=== PATIENT | male | born 1970 | race African-American/Black ===

== ENCOUNTER 2017-08-01 16:46 | Emergency (ER) | payer OTHER ==
--- NOTE | 2017-08-01 17:36 | EDM.PDOC ---
<Otilio Hughes O - Last Filed: 08/01/17 17:36> ED HPI GENERAL MEDICAL PROBLEM - General Chief Complaint: Cardiovascular Problem Stated Complaint: HIGH BLOOD PRESSURE Time Seen by Provider: 08/01/17 17:00 - Related Data Allergies Allergy/AdvReac Type Severity Reaction Status Date / Time No Known Allergies Allergy Verified 08/01/17 16:53 Home Meds: Home Meds Lisinopril 20 mg PO DAILY #30 tablet 08/01/17 [Rx] amLODIPine [Norvasc] 10 mg PO DAILY #30 tablet 08/01/17 [Rx] Past Medical History - Past Health History Medical/Surgical History: Denies Medical/Surgical History Social & Family History - Tobacco Use Smoking Status *Q: Never Smoker - Recreational Drug Use Recreational Drug Use: No Course - Vital Signs Last Recorded V/S: Last Vital Signs Temp 36.1 C 08/01/17 16:53 Pulse 54 L 08/01/17 16:53 Resp BP 208/101 H 08/01/17 18:05 Pulse Ox 100 08/01/17 16:53 - Orders/Labs/Meds Orders: Active Orders 24 hr Category Date Time Status EKG Documentation Completion [RC] ASDIRECTED Care 08/01/17 17:10 Active Chest 1V Frontal [CR] Stat Exams 08/01/17 18:03 Taken EKG 12 Lead [EK] Stat Ther 08/01/17 17:10 Ordered Labs: Laboratory Tests 08/01/17 08/01/17 08/01/17 Range/Units 17:50 17:54 17:54 WBC 5.17 (4.23-9.07) K/mm3 RBC 4.74 (4.63-6.08) M/mm3 Hgb 14.5 (13.7-17.5) gm/L Hct 40.3 (40.1-51.0) % MCV 85.0 (79.0-92.2) fl MCH 30.6 (25.7-32.2) pg MCHC 36.0 H (32.2-35.5) g/dl RDW Std Deviation 41.3 (35.1-43.9) fL Plt Count 144 L (163-337) K/mm3 MPV 10.4 (9.4-12.3) fl Neutrophils % (Manual) 46 (40-60) % Band Neutrophils % 0 (0-10) % Lymphocytes % (Manual) 45 H (20-40) % Atypical Lymphs % 0 % Monocytes % (Manual) 6 (2-10) % Eosinophils % (Manual) 3 (0.8-7.0) % Basophils % (Manual) 0 L (0.2-1.2) Platelet Estimate Adequate Plt Morphology Comment Normal RBC Morph Comment Normal Sodium 141 (136-145) mEq/L Potassium 4.1 (3.5-5.1) mEq/L Chloride 106 (98-107) mEq/L Carbon Dioxide 30 (21-32) mEq/L Anion Gap 9.1 (5-15) BUN 20 H (7-18) mg/dL Creatinine 1.1 (0.7-1.3) mg/dL Est Cr Clr Drug Dosing 93.81 mL/min Estimated GFR (MDRD) > 60 (>60) mL/min BUN/Creatinine Ratio 18.2 H (14-18) Glucose 92 (74-106) mg/dL Uric Acid 4.6 (3.5-7.2) mg/dL Calcium 9.4 (8.5-10.1) mg/dL Total Bilirubin 0.5 (0.2-1.0) mg/dL AST 76 H (15-37) U/L ALT 75 H (16-63) U/L Alkaline Phosphatase 94 (46-116) U/L Troponin I (0.00-0.056) ng/mL Total Protein 7.3 (6.4-8.2) g/dl Albumin 3.1 L (3.4-5.0) g/dl Globulin 4.2 gm/dL Albumin/Globulin Ratio 0.7 L (1-2) Urine Color Light yellow (Yellow) Urine Appearance Clear (Clear) Urine pH 6.0 (5.0-8.0) Ur Specific [place] 1.025 (1.005-1.030) Urine Protein 1+ H (Negative) Urine Glucose (UA) Negative (Negative) Urine Ketones Negative (Negative) Urine Occult Blood Trace-lysed H (Negative) Urine Nitrite Negative (Negative) Urine Bilirubin Negative (Negative) Urine Urobilinogen 2.0 H (0.2-1.0) Ur Leukocyte Esterase Negative (Negative) Urine RBC 0-5 (0-5) /hpf Urine WBC 0-5 (0-5) /hpf Ur Epithelial Cells 0-5 (0-5) /hpf Urine Bacteria Few (FEW) /hpf Urine Mucus Few (FEW) /hpf 08/01/17 Range/Units 17:54 WBC (4.23-9.07) K/mm3 RBC (4.63-6.08) M/mm3 Hgb (13.7-17.5) gm/L Hct (40.1-51.0) % MCV (79.0-92.2) fl MCH (25.7-32.2) pg MCHC (32.2-35.5) g/dl RDW Std Deviation (35.1-43.9) fL Plt Count (163-337) K/mm3 MPV (9.4-12.3) fl Neutrophils % (Manual) (40-60) % Band Neutrophils % (0-10) % Lymphocytes % (Manual) (20-40) % Atypical Lymphs % % Monocytes % (Manual) (2-10) % Eosinophils % (Manual) (0.8-7.0) % Basophils % (Manual) (0.2-1.2) Platelet Estimate Plt Morphology Comment RBC Morph Comment Sodium (136-145) mEq/L Potassium (3.5-5.1) mEq/L Chloride (98-107) mEq/L Carbon Dioxide (21-32) mEq/L Anion Gap (5-15) BUN (7-18) mg/dL Creatinine (0.7-1.3) mg/dL Est Cr Clr Drug Dosing mL/min Estimated GFR (MDRD) (>60) mL/min BUN/Creatinine Ratio (14-18) Glucose (74-106) mg/dL Uric Acid (3.5-7.2) mg/dL Calcium (8.5-10.1) mg/dL Total Bilirubin (0.2-1.0) mg/dL AST (15-37) U/L ALT (16-63) U/L Alkaline Phosphatase (46-116) U/L Troponin I < 0.017 (0.00-0.056) ng/mL Total Protein (6.4-8.2) g/dl Albumin (3.4-5.0) g/dl Globulin gm/dL Albumin/Globulin Ratio (1-2) Urine Color (Yellow) Urine Appearance (Clear) Urine pH (5.0-8.0) Ur Specific [place] (1.005-1.030) Urine Protein (Negative) Urine Glucose (UA) (Negative) Urine Ketones (Negative) Urine Occult Blood (Negative) Urine Nitrite (Negative) Urine Bilirubin (Negative) Urine Urobilinogen (0.2-1.0) Ur Leukocyte Esterase (Negative) Urine RBC (0-5) /hpf Urine WBC (0-5) /hpf Ur Epithelial Cells (0-5) /hpf Urine Bacteria (FEW) /hpf Urine Mucus (FEW) /hpf Meds: Medications Discontinued Medications Generic Name Dose Route Start Last Admin Trade Name Etienneq PRN Reason Stop Dose Admin Amlodipine Besylate 10 mg 08/01/17 17:58 08/01/17 18:05 Norvasc PO 08/01/17 17:59 10 mg ONETIME ONE Administration Departure - Departure Disposition: Home, Self-Care 01 Clinical Impression: Essential (primary) hypertension Prescriptions: amLODIPine [Norvasc] 10 mg PO DAILY #30 tablet Lisinopril 20 mg PO DAILY #30 tablet Referrals: PCP,None [Primary Care Provider] - Forms: ED Department Discharge Additional Instructions: Evaluation in the emergency room today in regards to identified elevated blood pressure during DOT physical examination at [facility] today. Blood pressure was indeed elevated and tests suggest that it is been elevated for at least 2 years and probably longer. There is no significant and organ damage such as eyes kidneys heart etc. Blood pressure at the time of discharge was 190 /100. All the lab tests done were essentially within normal limits. Treatment is therefore blood pressure medications amlodipine 10 mg once daily with lisinopril 20 mg once daily in both tablets could be taken at the same time of the day. He will have to take blood pressure medications the rest of your life. This is per to prevent stroke and/or heart attack/heart disease. Follow-up with your care provider at [facility] in one week's time as planned so that blood pressure can be reviewed in a will need to be reviewed fairly often until it comes under good control with medications. You may well need another medication to help control the blood pressure to near normal level. - My Orders Last 24 Hours: My Active Orders 08/01/17 17:10 EKG Documentation Completion [RC] ASDIRECTED EKG 12 Lead [EK] Stat 08/01/17 18:03 Chest 1V Frontal [CR] Stat - Assessment/Plan Last 24 Hours: My Active Orders 08/01/17 17:10 EKG Documentation Completion [RC] ASDIRECTED EKG 12 Lead [EK] Stat 08/01/17 18:03 Chest 1V Frontal [CR] Stat <Rambo Modi - Last Filed: 08/01/17 19:03> ED HPI GENERAL MEDICAL PROBLEM - General Source of Information: Reports: Patient History Limitations: Reports: No Limitations - History of Present Illness INITIAL COMMENTS - FREE TEXT/NARRATIVE: 47-year-old male who originated in the [place] presents to the ED for evaluation of markedly elevated blood pressure identified at DOT physical exam today. Patient was told 2 years ago at his last DOT physical that his blood pressure needed to be kept an eye on and he has not seen a physician since. Blood pressure at the clinic was greater than 230 on the systolic side and greater than 220 on the diastolic side. On arrival here his initial blood pressure was 240 10/27/11. Subsequent currently it has come down to 208/101. Heart rate remains in the 50s. I.e. sinus bradycardia. He is totally asymptomatic he has no headache no vertigo no off balance feeling no blurred vision no backache and no polyuria. To his knowledge never had any kidney diseases as a child. He's not sure about his family history. He has been in the [place] for about 23 years. Onset: Unknown/Unsure (Suspect blood pressure elevation for many years that is gone untreated.) Duration: Chronic Location: Reports: Generalized Quality: Reports: Other (No symptoms.) Severity: Moderate (Blood pressure is found a markedly elevated.) Improves with: Reports: None Worsens with: Reports: None Context: Reports: Other (Identified to be hypertensive on DOT physical exam done today.). Denies: Activity, Exercise, Lifting, Sick Contact, Trauma Associated Symptoms: Reports: No Other Symptoms Treatments EVENTS ASSOCIATE: Reports: Other (see below) (None.) Social & Family History - Living Situation & Occupation Living situation: Reports: Single Occupation: Employed ED ROS GENERAL - Review of Systems Review Of Systems: See Below Constitutional: Reports: No Symptoms HEENT: Reports: No Symptoms Respiratory: Reports: No Symptoms Cardiovascular: Reports: No Symptoms Endocrine: Reports: No Symptoms GI/Abdominal: Reports: No Symptoms : Reports: No Symptoms Musculoskeletal: Reports: No Symptoms Skin: Reports: No Symptoms Neurological: Reports: No Symptoms Psychiatric: Reports: No Symptoms Hematologic/Lymphatic: Reports: No Symptoms Immunologic: Reports: No Symptoms ED EXAM, GENERAL - Physical Exam Exam: See Below Exam Limited By: No Limitations General Appearance: Alert, WD/WN, No Apparent Distress Eye Exam: Bilateral Eye: Normal Fundi, PERRL Neck: Normal Inspection, Supple, Non-Tender, Full Range of Motion. No: Carotid Bruit, Lymphadenopathy (L), Lymphadenopathy (R) Respiratory/Chest: No Respiratory Distress, Lungs Clear, Normal Breath Sounds, No Accessory Muscle Use Cardiovascular: Normal Peripheral Pulses, Regular Rate, Rhythm, No Edema, No Gallop, No Murmur, No Rub Peripheral Pulses: 3+: Posterior Tibial (L), Posterior Tibial (R), Dorsalis Pedis (L), Dorsalis Pedis (R) GI/Abdominal: Normal Bowel Sounds, Soft, Non-Tender, No Organomegaly, No Distention, No Abnormal Bruit, No Mass, Pelvis Stable, Other (No surgical scars. ) Back Exam: Normal Inspection, Full Range of Motion. No: CVA Tenderness (L), CVA Tenderness (R) Extremities: Normal Inspection, Normal Range of Motion, Non-Tender, No Pedal Edema Neurological: Alert, Oriented, CN II-XII Intact, Normal Cognition, Normal Gait, Normal Reflexes Psychiatric: Normal Affect, Normal Mood Skin Exam: Warm, Dry, Intact, Normal Color, No Rash EKG INTERPRETATION EKG Date: 08/01/17 Time: 17:20 Rhythm: Other (Sinus bradycardia) Rate (Beats/Min): 50 [place]: LAD-Left [place] Deviation (Mild left axis deviation of -18) P-Wave: Present QRS: Other (Left ventricular hypertrophy pattern with strain.) ST-T: Other (There is an early repolarization pattern in V2 V3 and V4.) QT: Prolonged (Moderately prolonged) Course - Orders/Labs/Meds Labs: Laboratory Tests 08/01/17 08/01/17 08/01/17 Range/Units 17:50 17:54 17:54 WBC 5.17 (4.23-9.07) K/mm3 RBC 4.74 (4.63-6.08) M/mm3 Hgb 14.5 (13.7-17.5) gm/L Hct 40.3 (40.1-51.0) % MCV 85.0 (79.0-92.2) fl MCH 30.6 (25.7-32.2) pg MCHC 36.0 H (32.2-35.5) g/dl RDW Std Deviation 41.3 (35.1-43.9) fL Plt Count 144 L (163-337) K/mm3 MPV 10.4 (9.4-12.3) fl Neutrophils % (Manual) 46 (40-60) % Band Neutrophils % 0 (0-10) % Lymphocytes % (Manual) 45 H (20-40) % Atypical Lymphs % 0 % Monocytes % (Manual) 6 (2-10) % Eosinophils % (Manual) 3 (0.8-7.0) % Basophils % (Manual) 0 L (0.2-1.2) Platelet Estimate Adequate Plt Morphology Comment Normal RBC Morph Comment Normal Sodium 141 (136-145) mEq/L Potassium 4.1 (3.5-5.1) mEq/L Chloride 106 (98-107) mEq/L Carbon Dioxide 30 (21-32) mEq/L Anion Gap 9.1 (5-15) BUN 20 H (7-18) mg/dL Creatinine 1.1 (0.7-1.3) mg/dL Est Cr Clr Drug Dosing 93.81 mL/min Estimated GFR (MDRD) > 60 (>60) mL/min BUN/Creatinine Ratio 18.2 H (14-18) Glucose 92 (74-106) mg/dL Uric Acid 4.6 (3.5-7.2) mg/dL Calcium 9.4 (8.5-10.1) mg/dL Total Bilirubin 0.5 (0.2-1.0) mg/dL AST 76 H (15-37) U/L ALT 75 H (16-63) U/L Alkaline Phosphatase 94 (46-116) U/L Troponin I (0.00-0.056) ng/mL Total Protein 7.3 (6.4-8.2) g/dl Albumin 3.1 L (3.4-5.0) g/dl Globulin 4.2 gm/dL Albumin/Globulin Ratio 0.7 L (1-2) Urine Color Light yellow (Yellow) Urine Appearance Clear (Clear) Urine pH 6.0 (5.0-8.0) Ur Specific [place] 1.025 (1.005-1.030) Urine Protein 1+ H (Negative) Urine Glucose (UA) Negative (Negative) Urine Ketones Negative (Negative) Urine Occult Blood Trace-lysed H (Negative) Urine Nitrite Negative (Negative) Urine Bilirubin Negative (Negative) Urine Urobilinogen 2.0 H (0.2-1.0) Ur Leukocyte Esterase Negative (Negative) Urine RBC 0-5 (0-5) /hpf Urine WBC 0-5 (0-5) /hpf Ur Epithelial Cells 0-5 (0-5) /hpf Urine Bacteria Few (FEW) /hpf Urine Mucus Few (FEW) /hpf 08/01/17 Range/Units 17:54 WBC (4.23-9.07) K/mm3 RBC (4.63-6.08) M/mm3 Hgb (13.7-17.5) gm/L Hct (40.1-51.0) % MCV (79.0-92.2) fl MCH (25.7-32.2) pg MCHC (32.2-35.5) g/dl RDW Std Deviation (35.1-43.9) fL Plt Count (163-337) K/mm3 MPV (9.4-12.3) fl Neutrophils % (Manual) (40-60) % Band Neutrophils % (0-10) % Lymphocytes % (Manual) (20-40) % Atypical Lymphs % % Monocytes % (Manual) (2-10) % Eosinophils % (Manual) (0.8-7.0) % Basophils % (Manual) (0.2-1.2) Platelet Estimate Plt Morphology Comment RBC Morph Comment Sodium (136-145) mEq/L Potassium (3.5-5.1) mEq/L Chloride (98-107) mEq/L Carbon Dioxide (21-32) mEq/L Anion Gap (5-15) BUN (7-18) mg/dL Creatinine (0.7-1.3) mg/dL Est Cr Clr Drug Dosing mL/min Estimated GFR (MDRD) (>60) mL/min BUN/Creatinine Ratio (14-18) Glucose (74-106) mg/dL Uric Acid (3.5-7.2) mg/dL Calcium (8.5-10.1) mg/dL Total Bilirubin (0.2-1.0) mg/dL AST (15-37) U/L ALT (16-63) U/L Alkaline Phosphatase (46-116) U/L Troponin I < 0.017 (0.00-0.056) ng/mL Total Protein (6.4-8.2) g/dl Albumin (3.4-5.0) g/dl Globulin gm/dL Albumin/Globulin Ratio (1-2) Urine Color (Yellow) Urine Appearance (Clear) Urine pH (5.0-8.0) Ur Specific [place] (1.005-1.030) Urine Protein (Negative) Urine Glucose (UA) (Negative) Urine Ketones (Negative) Urine Occult Blood (Negative) Urine Nitrite (Negative) Urine Bilirubin (Negative) Urine Urobilinogen (0.2-1.0) Ur Leukocyte Esterase (Negative) Urine RBC (0-5) /hpf Urine WBC (0-5) /hpf Ur Epithelial Cells (0-5) /hpf Urine Bacteria (FEW) /hpf Urine Mucus (FEW) /hpf Meds: Medications Discontinued Medications Generic Name Dose Route Start Last Admin Trade Name Freq PRN Reason Stop Dose Admin Amlodipine Besylate 10 mg 08/01/17 17:58 08/01/17 18:05 Norvasc PO 08/01/17 17:59 10 mg ONETIME ONE Administration - Radiology Interpretation Free Text/Narrative:: 47-year-old male presents to the ED for evaluation of markedly elevated blood pressure identified in clinic today when he presented for DOT physical exam. BP was found to be around 235 systolic and over 225 diastolic. His DOT license was therefore denied. Patient reports on questioning that his DOT physical 2 years ago he was told that his blood pressure was mildly elevated need to be kept an eye on. Has not seen a doctor since. He is completely asymptomatic in terms of hypertension. BP on arrival here was 243 /112. His ECG done reveals definite left ventricular hypertrophy pattern with strain. This would suggest chronic uncontrolled hypertension for more than a couple of years. There is also suspect left atrial enlargement. There is no valvular disease on my assessment of his heart. Plan routine labs including a uric acid and a urinalysis to assess renal function. This will help us decide on a appropriate antihypertensive regime. Blood pressure at the time of my exam was 208/101. - Re-Assessments/Exams Free Text/Narrative Re-Assessment/Exam: 08/01/17 18:49 Labs reveal a normal white count at 5.17. Hemoglobin is normal at 14.5 with hematocrit of 40.3. MCV normal. Platelet count 144,000. Differential is 46% neutrophils no bands and 45% lymphocytes i.e. mild right shift. Sodium is 141 potassium is 4.1. Chloride 106 bicarbonate 30. Anion gap is 9.1. BUN is 20 creatinine 1.1. EGFR is greater than 60. Glucose is 92 uric acid is 4.6. Calcium 9.4. Bilirubin is normal at 0.5 AST is mildly elevated at 76 ALT is mildly elevated at 75. Alk phosphatase is normal at 94. Troponin is normal at less than 0.017. Urinalysis shows 1+ proteinuria.. Chest x-ray reveals mild cardiomegaly. Lungs are clear. Patient therefore has primary essential hypertension. BP remains to 10/09/05. He is bradycardic at 49-50/m. Therefore he will not be able to withstand beta blockers. Plan I'm going to place him on lisinopril 20 mg daily with amlodipine 10 mg daily for hypertension control. He is to follow-up with his personal care physician in one week's time. At that time I would not make any adjustments to his medication as the lisinopril can continue to lower his blood pressure for up to 3 months. I suspect however due to his significant hypertension he will require another agent to help lower his blood pressure. There is no doubt that he has had chronic hypertension for greater than 2-3 years to cause hypertrophy of his heart. At present he is not exhibiting any significant ocular disease or renal dysfunction. His bradycardia limits ability to use beta blockers or other calcium channel blockers. One could consider use of an alpha paulina such as prazosin 2 mg twice daily or clonidine 0.1 her 0.2 mg once daily at bedtime if the patient is very compliant with medication. Departure - Departure Time of Disposition: 18:59 Condition: Fair
[2017-08-01] MEDS ORDERED: amLODIPine 10 MG Tab PO ONE (17:58)
--- NOTE | 2017-08-02 07:12 | CR ---
Chest: Portable view of the chest was obtained. Comparison: No prior study. Heart is slightly enlarged. Mild tortuosity of the thoracic aorta is seen. Lungs are clear. Bony structures are grossly intact. Impression: 1. Slight cardiomegaly. Tortuous thoracic aorta. 2. Nothing acute is otherwise seen on portable chest x-ray. Diagnostic code #3
== END 2017-08-01 19:20 | disposition home or self-care (01) ==
LOC: JD.ED 16:46
DX: I10 Essential (primary) hypertension (principal); Z79.899 Other long term (current) drug therapy
CPT/HCPCS: 36415; 71010; 80053; 81001; 84484; 84550; 85025; 93005; 99284; A9270; 93010

== ENCOUNTER 2022-04-29 13:22 | Emergency (ER) | payer MEDICAID ==
[2022-04-29] MEDS ORDERED: Sodium Chloride 0.9% 10 ML Syringe FLUSH PRN (13:54)
[2022-04-29] MEDS ORDERED: hydrALAZINE 20 MG/ML SDV IVPUSH ONE ×2 (14:06→15:31)
[2022-04-29] MEDS ORDERED: amLODIPine 10 MG Tab PO ONE (14:29)
== END 2022-04-29 17:16 | disposition home or self-care (01) ==
LOC: JD.ED 13:22
DX: I10 Essential (primary) hypertension (principal); Z79.899 Other long term (current) drug therapy
CPT/HCPCS: 36415; 80053; 81001; 84439; 84443; 85025; 93005; 96374; 96376; 99283; A9270; J0360; J3490